=== PATIENT | male | born 1990 | race Two or more races ===

== ENCOUNTER 2024-12-01 10:35 | Emergency (ER) | payer OTHER ==
[~2024-12-01] VITALS: Ht 177.8 cm; Wt 79.4 kg
[2024-12-01 10:48] VITALS: BP 126/86; O2SAT 98
[2024-12-01] MEDS ORDERED: DEXAMETHASONE SODIUM PHOSPHATE 4 MG/ML VIAL IM STA (11:18)
[2024-12-01] MEDS ORDERED: ORPHENADRINE CITRATE 30 MG/ML AMPUL IM STA (11:18)
[2024-12-01] MEDS ORDERED: KETOROLAC TROMETHAMINE 15 MG VIAL IM STA (11:18)
[2024-12-01] MEDS ORDERED: DEXAMETHASONE SODIUM PHOSPHATE 4 MG/ML VIAL ONE (12:26)
[2024-12-01] MEDS ORDERED: ORPHENADRINE CITRATE 30 MG/ML AMPUL ONE (12:26)
[2024-12-01] MEDS ORDERED: KETOROLAC TROMETHAMINE 30 MG VIAL ONE (12:26)
[2024-12-01] MEDS ORDERED: NABUMETONE500 MG PO (12:45)
[2024-12-01] MEDS ORDERED: CYCLOBENZAPRINE5 MG PO (12:45)
[2024-12-01] MEDS ORDERED: MEDROLPACK PO (12:45)
== END 2024-12-01 14:03 | disposition home or self-care (01) ==
LOC: ER 10:56
DX: M54.2 Cervicalgia (principal); R51.9 Headache, unspecified